=== PATIENT | male | born 1975 | race Caucasian/White ===

== ENCOUNTER 2018-09-22 06:05 | Day surgery (SDC) | payer OTHER ==
[~2018-09-22] VITALS: Ht 170.2 cm; Wt 69.5 kg
[2018-09-22] MEDS ORDERED: NAPR-683 PO (06:19)
[2018-09-22] MEDS ORDERED: ceFAZolin 1GM IVPB FOR OMNI 1 GM/50 ML BAG IV ONE (06:21)
[2018-09-22] MEDS: IV RINGERS,LACTATED 1000ML 1,000 ML IV SCH ×2 (06:29→12:37)
[2018-09-22] MEDS ORDERED: LIDOCAINE 1% PF 2 ML VIAL. ID PRN (07:00)
[2018-09-22] MEDS ORDERED: fentaNYL PF VIAL 100 MCG/2 ML VIAL IV PRN ×2 (07:00)
[2018-09-22] MEDS ORDERED: ONDANSETRON PF 4 MG/2 ML VIAL. IV PRN (07:00)
[2018-09-22] MEDS ORDERED: HYDROmorphone 2 MG/ML VIAL IV PRN (07:00)
[2018-09-22] MEDS ORDERED: MORPHINE SULFATE 2 MG/ML VIAL. IV PRN (07:00)
[2018-09-22] MEDS ORDERED: PROCHLORPERAZINE 10 MG/2 ML VIAL. IV PRN (07:00)
[2018-09-22] MEDS ORDERED: BUPIVAC MPF-EPI 0.5%-1:200000 30 ML VIAL. ONE (07:12)
[2018-09-22] MEDS ORDERED: LIDOCAINE 2% PF 5 ML VIAL. ONE (07:21)
[2018-09-22] MEDS ORDERED: ROCURONIUM 50 MG/5 ML VIAL. ONE (07:21)
[2018-09-22] MEDS ORDERED: ONDANSETRON PF 4 MG/2 ML VIAL. ONE (07:21)
[2018-09-22] MEDS ORDERED: PROPOFOL 20 ML IV ONE (07:21)
[2018-09-22] MEDS ORDERED: fentaNYL PF VIAL 100 MCG/2 ML VIAL ONE (07:21)
[2018-09-22] MEDS ORDERED: MIDAZOLAM HCL/PF 2 MG/2 ML VIAL. ONE (07:21)
[2018-09-22] MEDS ORDERED: FAMOTIDINE 20 MG/2 ML VIAL ONE (07:21)
[2018-09-22] MEDS ORDERED: DEXAMETHASONE SOD PHOS 4 MG/ML VIAL ONE (07:21)
--- NOTE | 2018-09-22 11:41 | PDOC1 ---
History and Physical Date of Admission Date of Admission DATE: 09/22/18 TIME: 11:37 Identification/Chief Complaint Chief Complaint left inguinal pain, fullness Source Source: Chart review, Patient History of Present Illness History of Present Illness 43 yo male inmate with a left inguinal hernia Past Medical History Pulmonary: Asthma Past Surgical History Past Surgical History: No pertinent history Social History Smoke: No ALCOHOL: none Drugs: None Current Medications Current Medications Current Medications Ondansetron HCl (Zofran) 4 mg PRN Q6HRS PRN IV NAUSEA/VOMITING; Start 09/22/18 at 07:00; Stop 09/22/18 at 20:00 Fentanyl Citrate (Fentanyl 2ml Vial) 25 mcg PRN Q5MIN PRN IV MILD PAIN 1-3; Start 09/22/18 at 07:00; Stop 09/22/18 at 20:00 Fentanyl Citrate (Fentanyl 2ml Vial) 50 mcg PRN Q5MIN PRN IV MODERATE TO SEVERE PAIN; Start 09/22/18 at 07:00; Stop 09/22/18 at 20:00 Morphine Sulfate (Morphine Sulfate) 1 mg PRN Q10MIN PRN IV SEVERE PAIN 7-10; Start 09/22/18 at 07:00; Stop 09/22/18 at 20:00 Ringer's Solution 1,000 ml @ 30 mls/hr Q24H IV Last administered on 09/22/18at 06:29; Start 09/22/18 at 07:00; Stop 09/22/18 at 18:59 Lidocaine HCl (Xylocaine-Mpf 1% 2ml Vial) 2 ml PRN 1X PRN ID PRIOR TO IV START; Start 09/22/18 at 07:00; Stop 09/22/18 at 20:00 Hydromorphone HCl (Dilaudid) 0.5 mg PRN Q10MIN PRN IV SEV PAIN, Second choice; Start 09/22/18 at 07:00; Stop 09/22/18 at 20:00 Prochlorperazine Edisylate (Compazine) 5 mg PACU PRN PRN IV NAUSEA, MRX1; Start 09/22/18 at 07:00; Stop 09/22/18 at 20:00 Cefazolin Sodium 50 ml @ 100 mls/hr 1X PREOP PRN IV PRIOR TO PROCEDURE; Start 09/22/18 at 06:00; Stop 09/22/18 at 18:00; Status Cancel Cefazolin Sodium 50 ml @ 100 mls/hr 1X PREOP PRN IV PER PROTOCOL; Start 09/23/18 at 06:30; Stop 09/23/18 at 06:31 Propofol 20 ml @ As Directed STK-MED ONCE IV ; Start 09/22/18 at 07:21; Stop 09/22/18 at 07:22; Status DC Famotidine (Pepcid Vial) 20 mg STK-MED ONCE .ROUTE ; Start 09/22/18 at 07:21; Stop 09/22/18 at 07:22; Status DC Lidocaine HCl (Lidocaine Pf 2% Vial) 5 ml STK-MED ONCE .ROUTE ; Start 09/22/18 at 07:21; Stop 09/22/18 at 07:22; Status DC Ondansetron HCl (Zofran) 4 mg STK-MED ONCE .ROUTE ; Start 09/22/18 at 07:21; Stop 09/22/18 at 07:22; Status DC Dexamethasone Sodium Phosphate (Decadron) 4 mg STK-MED ONCE .ROUTE ; Start 09/22/18 at 07:21; Stop 09/22/18 at 07:22; Status DC Rocuronium [place] (Zemuron) 50 mg STK-MED ONCE .ROUTE ; Start 09/22/18 at 07:21; Stop 09/22/18 at 07:22; Status DC Fentanyl Citrate (Fentanyl 2ml Vial) 100 mcg STK-MED ONCE .ROUTE ; Start 09/22/18 at 07:21; Stop 09/22/18 at 07:22; Status DC Midazolam HCl (Versed) 2 mg STK-MED ONCE .ROUTE ; Start 09/22/18 at 07:21; Stop 09/22/18 at 07:22; Status DC Bupivacaine HCl/ Epinephrine Bitart (Sensorcain-Mpf Epi 0.5%-[id number]) 30 ml STK-MED ONCE .ROUTE ; Start 09/22/18 at 07:12; Stop 09/22/18 at 08:12; Status DC Cefazolin Sodium (Ancef 1gm Ivpb For Omni) 1 gm STK-MED ONCE IV ; Start 09/22/18 at 06:21; Stop 09/22/18 at 10:25; Status DC Active Scripts Active Reported Naprosyn (Naproxen) 500 Mg Tablet 1 Tab PO BID Allergies Allergies: Coded Allergies: tomato (Verified Allergy, Severe, Anaphylaxis, 09/22/18) ROS Review of System negative with exception of present complaints Physical Exam General: Alert, No acute distress HEENT: Atraumatic Lungs: Normal air movement Heart: RRR Abdomen: Soft Male Genitals Exam: hernia (left) Vitals Vitals Vital Signs Date Time Temp Pulse Resp B/P (MAP) Pulse Ox O2 Delivery O2 Flow Rate FiO2 09/22/18 06:21 98.3 68 18 134/75 95 Room Air 98.3 VTE Prophylaxis Ordered VTE Prophylaxis Devices: Yes VTE Pharmacological Prophylaxi: No Assessment/Plan Assessment/Plan explained risks of repair including but not limited to bleeding, infection, recurrence, numbness, chronic pain he will proceed SEAN MEDINA MD Sep 22, 2018 11:41
--- NOTE | 2018-09-22 12:48 | PDOC ---
BRIEF OPERATIVE NOTE Date: Sep 22, 2018 Pre-Op Diagnosis left inguinal hernia Post-Op Diagnosis same, indirect Procedure Performed repair with mesh Surgeon Fernando Anesthesia Type: General (LMA) Blood Loss 10cc IV Fluid 1000cc Specimens Obtained none Findings indirect hernia sack, adequate floor Complications none SEAN MEDINA MD Sep 22, 2018 12:47
--- NOTE | 2018-09-22 12:50 | DISCH ---
DISCHARGE INSTRUCTIONS Condition on Discharge Condition on Discharge: Stable Activity After Discharge Activity Instructions for Disc: Activity as tolerated, Avoid exertion Lifting Instructions after Dis: No heavy lifting Diet after Discharge Diet after Discharge: Regular Wound Incision Care Wound/Incision Care: Ice to area for comfort Other wound/incision instructi: july showwednesday Follow-Up Follow up with: Fernando two weeks SEAN MEDINA MD Sep 22, 2018 12:50
[2018-09-22] MEDS ORDERED: oxyCODONE/APAP 5/325 1 TAB TABLET PO ONE (13:15)
[2018-09-22 13:40] VITALS: BP 117/70
--- NOTE | 2018-09-28 11:36 | OP ---
DATE OF SURGERY: 09/22/2018 PREOPERATIVE DIAGNOSIS: Left inguinal hernia. POSTOPERATIVE DIAGNOSIS: Left inguinal hernia, indirect. PROCEDURE: Repair with mesh. SURGEON: Margarito Medina MD ANESTHESIA: General LMA. ESTIMATED BLOOD LOSS: 10 mL. INTRAVENOUS: 1 liter. INDICATIONS: The patient is a 43-year-old inmate with left inguinal fullness and pain, brought for repair. DESCRIPTION OF PROCEDURE: The patient brought to the operating suite, given a general LMA and the left groin prepped and draped in usual sterile fashion. Skin incision infiltrated with local anesthetic, incised and dissection carried down to the external oblique fascia. This was opened in the direction of its fibers. Cord structures swept off the pubis. Blossom drain placed around it. Dissection carried back to the internal ring where a large indirect hernia sac was identified, skeletonized and reduced. This was held in reduction with a plug of Phasix mesh, tacked with 2-0 PDS, taking care to avoid injury to adjacent vessels. A keyhole patch was fashioned and placed over the floor of the canal. The slit closed with a single 2-0 PDS stitch. When hemostasis was present and a correct sponge count obtained, the cord was returned to its normal anatomical position. External oblique fascia closed over a running fashion with 3-0 Vicryl. Subcutaneous approximated with 3-0 Vicryl, skin closed with subcuticular 4-0 Monocryl. Steri-Strips and sterile dressing applied. The patient was awakened from his anesthetic and taken to the recovery room in satisfactory condition. MARGARITO MEDINA MD DR: KELLEY/zita JOB#: [id number] / [id number]
== END 2018-09-22 14:03 | disposition home or self-care (01) ==
LOC: SURG 06:05 → EEVIPCON 08:30 → SURG 14:03
PROVIDERS: ATTEND Surgery
DX: K40.90 Unilateral inguinal hernia, without obstruction or gangrene, not specified as recurrent (principal); Z91.018 Allergy to other foods
CPT/HCPCS: 49505; A7015; C1781; J0690; J1100; J2001; J2250; J2405; J2704; J3010; J3490